=== PATIENT | male | born 1960 | race Caucasian/White ===

== ENCOUNTER 2022-01-27 16:21 | Emergency (ER) | payer SELFPAY ==
[~2022-01-27] VITALS: Ht 167.6 cm; Wt 70.3 kg
[~2022-01-27 16:21] MED LIST: ACYCLOVIR400 MG PO; AUGMENTIN 875 M1 TAB PO; DAYPRO600 M1 PO; PERCOCET 325 MG1 TA2 PO; PREDNICOT10 MG PO; ROBAXIN750 MG PO
[2022-01-27] MEDS ORDERED: VIBRAMYCIN100 MG PO ×2 (17:06)
== END 2022-01-27 17:32 | disposition home or self-care (01) ==
LOC: ED 16:21
DX: L03.114 Cellulitis of left upper limb (principal)